=== PATIENT | male | born 1945 | race Caucasian/White ===

== ENCOUNTER → 2016-09-15 | Outpatient (CLI) | payer MEDICARE | END | disposition home or self-care (01) | LOC: CFH 10:57 | PROVIDERS: ATTEND Internal Medicine | DX: R91.8 Other nonspecific abnormal finding of lung field (principal) | CPT/HCPCS: 71111 ==

== ENCOUNTER → 2016-10-16 | Outpatient (CLI) | payer MEDICARE ==
[~2016-10-16] MED LIST: vit c PO; vit d3 PO; vit e PO
== END | disposition home or self-care (01) ==
LOC: PETCFH 08:15
PROVIDERS: ATTEND Internal Medicine
DX: D17.9 Benign lipomatous neoplasm, unspecified (principal); R91.8 Other nonspecific abnormal finding of lung field; R93.3 Abnormal findings on diagnostic imaging of other parts of digestive tract; Z72.0 Tobacco use; Z85.828 Personal history of other malignant neoplasm of skin
CPT/HCPCS: 78815; A9552

== ENCOUNTER → 2016-10-23 | Outpatient (CLI) | payer MEDICARE ==
[~2016-10-23] MED LIST changes: +ASCO500T29 PO; +BENZ100C4 PO; +BIOT25004 PO; +CHOL200024 PO; +FLUN25SP NAS; +GINK60TA4 PO; +NIACINAMIDE PO; +SAW450CA2 PO; +VITAMIN B-50 PO; +VITAMIN E PO; +[UNRECOGNIZED DRUG - OTHER] PO
== END | disposition home or self-care (01) ==
LOC: STAR 10:55
PROVIDERS: ATTEND Internal Medicine Gastroenterology
DX: Z01.810 Encounter for preprocedural cardiovascular examination (principal); R93.8 Abnormal findings on diagnostic imaging of other specified body structures
CPT/HCPCS: 93005

== ENCOUNTER 2016-11-02 11:50 | Day surgery (SDC) | payer MEDICARE ==
[~2016-11-02] VITALS: Ht 182.9 cm; Wt 81.8 kg
[2016-11-02 12:45] VITALS: BP 98/67
[2016-11-02] MEDS ORDERED: LACTATED RINGERS 1,000 ML IV SCH (13:03)
[2016-11-02] MEDS ORDERED: PIPERACILLIN/TAZO/PMX 3.375GM 50 ML ONE (13:20)
[2016-11-02] MEDS ORDERED: CHLORHEXIDINE MOUTHWASH 15 ML UDC ONE (13:21)
[2016-11-02] MEDS ORDERED: PROPOFOL 10 MG/ML, 20ML ONE (13:39)
[2016-11-02] MEDS ORDERED: MEPERIDINE/PF 25MG/0.5ML IVPush PRN (14:00)
[2016-11-02] MEDS ORDERED: METOCLOPRAMIDE 5 MG/ML, 2ML IV PRN (14:00)
[2016-11-02] MEDS ORDERED: HYDROmorphone 1 MG/ML, 1ML IV PRN ×2 (14:00→14:30)
[2016-11-02] MEDS ORDERED: ACETAMINOPHEN 325 MG TABLET PO PRN ×2 (14:00→14:30)
[2016-11-02] MEDS ORDERED: PROMETHAZINE 25 MG/ML, 1ML IV PRN (14:00)
[2016-11-02] MEDS ORDERED: OXYcodone 5 MG/5 ML ORAL.SOL UDC PO PRN ×2 (14:00→14:30)
[2016-11-02] MEDS ORDERED: FENTANYL PF 100 MCG/2ML IV PRN ×2 (14:00→14:30)
[2016-11-02] MEDS ORDERED: LABETALOL 5MG/ML, 20ML IV PRN (14:00)
[2016-11-02] MEDS ORDERED: MIDAZOLAM 1 MG/ML, 2ML IV PRN ×2 (14:00→14:30)
[2016-11-02] MEDS ORDERED: hydrALAzine 20 MG/ML, 1ML IV PRN (14:00)
[2016-11-02] MEDS ORDERED: ONDANSETRON 2MG/ML, 2ML IVPush PRN ×2 (14:00→14:30)
== END 2016-11-02 15:30 | disposition home or self-care (01) ==
LOC: OUT 11:50
PROVIDERS: ATTEND Internal Medicine Gastroenterology
DX: C25.2 Malignant neoplasm of tail of pancreas (principal); K22.10 Ulcer of esophagus without bleeding; K22.8 Other specified diseases of esophagus; G47.33 Obstructive sleep apnea (adult) (pediatric); F17.210 Nicotine dependence, cigarettes, uncomplicated; Z86.010 Personal history of colon polyps
CPT/HCPCS: 43238; 43239; 88172; 88173; 88177; 88305; 88307; 88313; J2543; J2704; J7120

== ENCOUNTER → 2016-11-23 | Outpatient (CLI) | payer MEDICARE | END | disposition home or self-care (01) | LOC: RAD 14:03 | PROVIDERS: ATTEND Internal Medicine Critical Care Medicine | DX: R91.8 Other nonspecific abnormal finding of lung field (principal); I25.10 Atherosclerotic heart disease of native coronary artery without angina pectoris; M51.34 Other intervertebral disc degeneration, thoracic region; K80.20 Calculus of gallbladder without cholecystitis without obstruction; E27.9 Disorder of adrenal gland, unspecified | CPT/HCPCS: 71250 ==

== ENCOUNTER 2016-12-01 05:22 | Day surgery (SDC) | payer MEDICARE ==
[~2016-12-01] VITALS: Ht 182.9 cm; Wt 81.0 kg
[2016-12-01 06:24] VITALS: BP 97/65
[2016-12-01] MEDS ORDERED: LIDOCAINE 1%, 2ML ONE (06:32)
[2016-12-01] MEDS ORDERED: LACTATED RINGERS 1,000 ML IV SCH (06:43)
[2016-12-01] MEDS ORDERED: LIDOCAINE 1%, 2ML SQ PRN (07:00)
[2016-12-01] MEDS ORDERED: ROCURONIUM 10 MG/ML ONE (07:47)
[2016-12-01] MEDS ORDERED: DEXAMETHASONE 4 MG/ML, 1ML ONE (07:47)
[2016-12-01] MEDS ORDERED: PROPOFOL 10 MG/ML, 50ML ONE (07:47)
[2016-12-01] MEDS ORDERED: PROPOFOL 10 MG/ML, 20ML ONE (07:47)
[2016-12-01] MEDS ORDERED: ONDANSETRON 2MG/ML, 2ML ONE (07:47)
[2016-12-01] MEDS ORDERED: SUCCINYLCHOLINE 20 MG/ML, 10ML ONE (07:47)
[2016-12-01] MEDS ORDERED: FENTANYL PF 100 MCG/2ML IV PRN (09:00)
[2016-12-01] MEDS ORDERED: OXYcodone 5 MG/5 ML ORAL.SOL UDC PO PRN (09:00)
[2016-12-01] MEDS ORDERED: ALBUTEROL/IPRATROPIUM 2.5MG/0.5MG, 3 ML NPPB PRN (09:00)
[2016-12-01] MEDS ORDERED: MIDAZOLAM 1 MG/ML, 2ML IV PRN (09:00)
[2016-12-01] MEDS ORDERED: ONDANSETRON 2MG/ML, 2ML IVPush PRN (09:00)
[2016-12-01] MEDS ORDERED: HYDROmorphone 1 MG/ML, 1ML IV PRN (09:00)
[2016-12-01] MEDS ORDERED: PROMETHAZINE 25 MG/ML, 1ML IV PRN (09:00)
== END 2016-12-01 11:00 | disposition home or self-care (01) ==
LOC: OUT 05:22
PROVIDERS: ATTEND Internal Medicine Critical Care Medicine
DX: R91.8 Other nonspecific abnormal finding of lung field (principal); F17.210 Nicotine dependence, cigarettes, uncomplicated; Z72.89 Other problems related to lifestyle
CPT/HCPCS: 31623; 31624; 31627; 31628; 71010; 88104; 88112; 88305; 88341; 88342; J0330; J1100; J2405; J2704; J3490; J7120; 31625; 31632; 76000; G0461